=== PATIENT | male | born 1985 ===

== ENCOUNTER 2025-08-30 10:48 | Emergency (ER) | payer BC, MEDICAID, SELFPAY ==
--- NOTE | 2025-08-30 10:57 | ED_ITS ---
HPI - General Adult 2 General: Chief complaint: Headache Stated complaint: extreme mood swings, headache, vomiting , SOB Time Seen by Provider: 08/30/25 10:56 History of Present Illness: 40-year-old male presents emergency room with sudden onset of a migraine headache with blurred vision this morning it began while he was masturbating. Patient is extremely anxious. He has no focal neurologic deficits he still has a headache. He had episode of vomiting. He also states he has had significant mood swings lately. He denies any homicidal or suicidal ideation Associated symptoms: Reports headache(s), nausea and vomiting; Deny chest pain, dyspnea or rash Related Data Previous Rx's ?Medication ?Instructions ?Recorded bupropion HCl 150 mg 24 hr tablet, 150 mg PO QAM #30 t abs 07/31/25 extended release (Wellbutrin XL) trazodone 50 mg tablet 100 mg (2 x 50 mg) PO .HS MI N 07/31/25 insomnia #60 tabs venlafaxine 37.5 mg See Rx Instructions PO .COMP ROCKY 08/17/25 capsule,extended release 24 hr #12 caps (Effexor XR) mirtazapine 15 mg tablet 15 mg PO .qhs #30 tabs 08/28 Allergies Allergy/AdvReac Type Severity Reaction Status Date / Time venlafaxine (From Effexor) Allergy Unknown Verified 09/01/25 15:31 mold AdvReac Intermediate ADR-Itching Verified 09/01/25 15:31 Review of Systems 2 Const: Denies: fever(s) or chills Card: Denies: chest pain Resp: Denies: dyspnea GI: Reports: nausea and vomiting; Denies: abdominal pain : Denies: dysuria, urinary frequency or urinary urgency Musc: Denies: neck pain or back pain Skin/Breast: Denies: rash Neuro: Reports: headache(s) PFSH ED 2 PFSH: Medical History Psychiatric care Physical Exam 2 Const: COMMON NORMALS: no acute distress GENERAL APPEARANCE: cooperative and comfortable ORIENTATION/CONSCIOUSNESS: Yes awake, Yes oriented to person, Yes oriented to place and Yes oriented to time HENMT: COMMON NORMALS: normocephalic, atraumatic and hearing grossly normal bilaterally HEAD & SCALP: normocephalic and atraumatic Resp: COMMON NORMALS: normal respiratory effort, No retractions, No use of accessory muscles and clear to auscultation bilaterally AUSCULTATION: clear to auscultation bilaterally Cardio: COMMON NORMALS: regular rate, regular rhythm and No murmurs present (Cardio) RATE: regular rate RHYTHM: regular rhythm GI: COMMON NORMALS: Soft to palpation and No hepatosplenomegaly present A USCULTATION: Yes normoactive bowel sounds PALPATION: Yes Soft to palpation, No Tenderness to palpation present (GI), No Guarding due to palpation present (GI) and Yes No hepatosplenomegaly present Extremity: COMMON NORMALS: normal to inspection, capillary refill normal, no clubbing, cyanosis or edema, no calf tenderness and no pedal edema Neuro: SENSORIUM/ORIENTATION: Yes oriented to person, Yes oriented to place and Yes oriented to time OTHER: No focal neurologic deficits. No facial asymmetry strength equal bilaterally no ataxia Skin: COMMON NORMALS: no rashes or lesions noted GENERAL SKIN EXAM: no rashes or lesions noted Course 2 Vital Signs: Vital signs: Vital Signs Temperature 97.6 F 08/30/25 10:59 Pulse Rate 65 08/30/25 11:12 Respiratory Rate 18 08/30/25 11:12 Blood Pressure 124/70 08/30/25 13:16 Pulse Oximetry 100 08/30/25 13:16 Oxygen Delivery Me thod Room Air 08/30/25 13:16 MDM - General Adult Medical Decision Making Medical decision making Social determinants: Minimal social support I reviewed the patient's medical record. I reviewed the patient's current home meds Alternate historians: None Differential diagnosis migraine with aura, Subarachnoid hemorrhage, subdural hematoma, CVA Imaging: CT head negative for any acute findings Assessment of risk: Level of risk: Low Hospitalization considerations: Pending results of CT hospitalization would be considered if patient does have significant intracranial findings Reexamination: Repeat exam headache improved. He still has no focal neurologic deficits Assessment and plan: Suspect migraine with aura. Patient improved with medications given. No finding of acute stroke. He does have a significant component of anxiety by his own admission. Reviewed findings with the patient will discharge patient home encouraged him to follow-up with his primary care doctor if migraines recur or persist. Also can discuss treatment options for his anxiety issues Medical Records I reviewed the patient's medical records. Lab Data I reviewed the patient's lab results. 08/30/25 11:08 08/30/25 11:[address] 08/30/25 11:10 IMPRESSION: 1. No evidence of intracranial hemorrhage or mass effect. 2. No acute intracranial findings. Laboratory Results WBC 9.26 10^3/uL (3.29-11.43) 08/30/25 11:08 RBC 4.84 10^6/uL (3.85-5.65) 08/30/25 11:08 Hgb 14.90 g/dL (11.27-16.99) 08/30/25 11:08 Hct 42.6 % (37-53) 08/30/25 11:08 MCV 88.0 fl (82-101) 08/30/25 11:08 MCH 30.8 pg (27-33) 08/30/25 11:08 MCHC 35.0 g/dL (30-55) 08/30/25 11:08 RDW 12.7 % (12.1-15.1) 08/30/25 11:08 Plt Count 243 10^3/cmm (157-399) 08/30/25 11:08 MPV 10.8 fL (7.4-10.4) H 08/30/25 11:08 Neut % (Auto) 63.9 % 08/30/25 11:08 Lymph % (Auto) 27.4 % 08/30/25 11:08 [place] % (Auto) 6.6 % 08/30/25 11:08 Eos % (Auto) 1.4 % 08/30/25 11:08 Baso % (Auto) 0.4 % 08/30/25 11:08 Neut # (Auto) 5.91 10^3/uL (1.8-7.7) 08/30/25 11:08 Lymph # (Auto) 2.5 10^3/uL (0.8-4.8) 08/30/25 11:08 [place] # (Auto) 0.6 10^3/uL (0.2-0.9) 08/30/25 11:08 Eos # (Auto) 0.1 10^3/uL (0.0-0.8) 08/30/25 11:08 Baso # (Auto) 0.0 10^3/uL (0.0-0.1) 08/30/25 11:08 Nucleated RBC % (auto) 0 % 08/30/25 11:08 Nucleated RBCs # 0.0 /100WBC 08/30/25 11:08 Sodium 139 mmol/L (136-145) 08/30/25 11:08 Potassium 3.9 mmol/L (3.5-5.1) 08/30/25 11:08 Chloride 103 mmol/L (98-107) 08/30/25 11:08 Carbon Dioxide 28 mmol/L (22-29) 08/30/25 11:08 Anion Gap 11.9 (5-19) 08/30/25 11:08 BUN 8 mg/dL (6-20) 08/30/25 11:08 Creatinine 0.8 mg/dL (0.7-1.2) 08/30/25 11:08 GFR Calculation 107.1 mL/min (90-130) 08/30/25 11:08 Glucose 101 mg/dL (65-115) 08/30/25 11:08 Calculated Osmolality 286 mOsm/kg (285-295) 08/30/25 11:08 Calcium 9.3 mg/dL (8.5-10.5) 08/30/25 11:08 Total Bilirubin 0.5 mg/dL (0.15-1.2) 08/30/25 11:08 AST 24 U/L (0-40) 08/30/25 11:08 ALT 38 U/L (0-41) 08/30/25 11:08 Alkaline Phosphatase 60 U/L (40-130) 08/30/25 11:08 Total Protein 7.4 g/dL (6.6-8.7) 08/30/25 11:08 Albumin 4.6 g/dL (3.5-5.2) 08/30/25 11:08 Globulin 2.8 g/dL (1.3-4.6) 08/30/25 11:08 Lipase 25 U/L (13-60) 08/30/25 11:08 Urine Color Yellow (Yellow) 08/30/25 11:17 Urine Appearance Clear (CLEAR) 08/30/25 11:17 Urine pH 6.5 (5-7) 08/30/25 11:17 Ur Specific [place] 1.003 (1.005-1.030) L 08/30/25 11:17 Urine Protein Negative (Negative) 08/30/25 11:17 Urine Glucose (UA) Negative (Normal) 08/30/25 11:17 Urine Ketones Negative (Negative) 08/30/25 11:17 Urine Blood Negative (Negative) 08/30/25 11:17 Urine Nitrate Negative (Negative) 08/30/25 11:17 Urine Bilirubin Negative (Negative) 08/30/25 11:17 Urine Urobilinogen 0.2 mg/dL (Negative) 08/30/25 11:17 Ur Leukocyte Esterase Negative (Negative) 08/30/25 11:17 Urine RBC 0-2 /hpf (0-2) 08/30/25 11:17 Urine WBC 0-5 /hpf (0-5) 08/30/25 11:17 Ur Squamous Epith Cells 0-5 /hpf (0-5) 08/30/25 11:17 Amorphous Sediment Not Reportable 08/30/25 11:17 Urine Bacteria None seen /hpf (NONE) 08/30/25 11:17 Hyaline Casts 0.81 /lpf 08/30/25 11:17 All radiology interpretation(s) finalized by discharge Discharge Plan Discharge Patient Disposition: Home Clinical Impression: Migraine Condition: Stable Prescriptions: No Action bupropion HCl [Wellbutrin XL] 150 mg tablet extended release 24 hr 150 mg PO QAM Qty: 30 2RF trazodone 50 mg tablet 100 mg PO .HS PRN (Reason: insomnia) Qty: 60 2RF venlafaxine [Effexor XR] 37.5 mg capsule,extended release 24hr See Rx Instructions PO .COMPLEX Qty: 12 0RF Rx Instructions: Take two capsules PO daily for 4 days. After that, take one capsule PO daily for 4 days. mirtazapine 15 mg tablet 15 mg PO .qhs Qty: 30 1RF Discharge Orders: Discharge ED (Routine); Ordered 08/30/25 Ordered By: Carlos Pacheco Discharge Diet: Usual diet Discharge Activity: Increase activity as tolerated Patient Instructions: Opioid Safety, Pain Management, Patient Portal & Anay Instructions Activity Restrictions/Additional Instructions: Thank you for choosing [facility] for your healthcare needs today. It is very important that you follow up as instructed or that you return to the Emergency Department should you have concerns or if your condition changes or worsens in any way. Emergency department visits are focused on emergent conditions, in some cases you may require further evaluation on an outpatient basis. You are seen in the emergency room with complaints of headache with episode of vomiting. Your neurologic exam was normal CT of your head was negative your labs are otherwise unremarkable. Symptoms are consistent with migraine variant will discharge you home and have you follow-up with neurology. (Please note that included in your discharge packet is information concerning opioid safety and pain management. This information is given to all patients were discharged from the ER regardless of their discharge diagnosis or the medicines they usually take or are prescribed.) Print Language: Danish Coding Level of Care Code ED [employer] for [employer]
[2025-08-30 10:59] VITALS: BP 147/100; PULSE 68; RESP 20; TEMP 36.4; O2SAT 98
[2025-08-30] MEDS: ondansetron 2 mg/ML SDV 2 mL 4 MG IVP (11:09)
--- NOTE | 2025-08-30 11:10 | CT_ITS ---
WS: [id number] CT HEAD TECHNIQUE: Noncontrast CT of the head obtained from the skullbase to the vertex. CLINICAL INFORMATION: Extremity numbness headaches COMPARISON: None. DLP: 1256.[address] scans at [facility] use at least one of these dose optimization techniques: automated exposure control; mA and/or kV adjustment per patient size (includes targeted exams where dose is matched to clinical indication); or iterative reconstruction. FINDINGS: No evidence of intracranial hemorrhage or mass effect. Ventricular system and basal cisterns are patent. No extra-axial fluid collections. No evidence of mass or mass effect. Normal lindsey-white differentiation. Paranasal sinuses and mastoid air cells are well aerated. .Normal visualized soft tissues. CT/CT head wo con* [id number] IMPRESSION: 1. No evidence of intracranial hemorrhage or mass effect. 2. No acute intracranial findings.
[2025-08-30 11:12] VITALS: BP 134/96; PULSE 65; RESP 18; O2SAT 99
[2025-08-30 11:21] LABS: Hematocrit 42.6 % (37-53); Hemoglobin 14.90 g/dL (11.27-16.99); Mean Corpuscular HGB Conc 35.0 g/dL (30-55); Mean Corpuscular Hemoglobin 30.8 pg (27-33); Mean Corpuscular Volume 88.0 fl (82-101); Nucleated Red Blood Cells % 0 %; Platelet Count 243 10^3/cmm (157-399); Red Blood Count 4.84 10^6/uL (3.85-5.65); White Blood Count 9.26 10^3/uL (3.29-11.43)
[2025-08-30 11:28] LABS: Glucose Urine UA Negative (Normal); Nitrate Urine Negative (Negative); Specific Gravity, Urine 1.003 (1.005-1.030)
[2025-08-30 11:33] LABS: Add Urine Microscopic? YES
[2025-08-30 11:45] LABS: Alanine Aminotransferase 38 U/L (0-41); Albumin Level 4.6 g/dL (3.5-5.2); Alkaline Phosphatase 60 U/L (40-130); Anion Gap 11.9 (5-19); Aspartate Amino Transferase 24 U/L (0-40); Blood Urea Nitrogen 8 mg/dL (6-20); Calcium 9.3 mg/dL (8.5-10.5); Carbon Dioxide 28 mmol/L (22-29); Chloride 103 mmol/L (98-107); Globulin 2.8 g/dL (1.3-4.6); Glucose 101 mg/dL (65-115); Lipase 25 U/L (13-60); Osmolality Calculated 286 mOsm/kg (285-295); Potassium 3.9 mmol/L (3.5-5.1); Sodium 139 mmol/L (136-145); Total Protein 7.4 g/dL (6.6-8.7)
[2025-08-30 12:19] VITALS: BP 135/76; O2SAT 98
[2025-08-30 12:44] VITALS: BP 136/81; O2SAT 100
[2025-08-30 13:16] VITALS: BP 124/70; O2SAT 100
--- NOTE | 2025-08-30 13:34 | PC.NURSE ---
This nurse heard yelling in this pts room while this nurse was next door in a different pts room. This nurse went to check on this pt and the pt states he needed to leave now. Pt states I have to go now, my son has to leave school now . Pt refused to stay for IVF. This nurse notified dr jovel and dr jovel verbalized it was okay for him to leave.
--- OUTSIDE RECORDS SUMMARY | 2025-08-30 13:55 | XMS_ITS | Encounter Summary ---
Author Organization [facility], [facility] Address [address] [place] [address] Phone Care Team Providers Care Tinsmith Apprentice Name Role Phone Seble Josue MD Primary Care Provider [phone] Encounter Details Date Type Department Care Team (Late st Contact Info) Description 10/23/2020 Orders Only [facility], [facility] [address] [place] [address] Fabry-Robert disease (HCC) Social History Tobacco Use Types Packs/Day Years Used Date Smoking Tobacco: Never Assessed Sex and Gender Information Value Date Recorded Sex Assigned at Not on file Legal Sex Male 10:18 AM EST Gender Identity Not on file Sexual Orientation Not on file documented as of this encounter Plan of Treatment Not on file documented as of this encounter Visit Diagnoses 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
--- OUTSIDE RECORDS SUMMARY | 2025-08-30 13:55 | XMS_ITS | Clinical Summary ---
Author Organization [facility] Address [address], [address] [place] [address] Phone Care Team Providers Care Separator Tender Name Role Phone Seble Josue MD Primary Care Provider Allergies No known active allergies Medications flu vaccine quadrivalent (6 mo+)(PF)(FUARIX QUAD,FLULAVAL QUAD/FLUZONE QUAD) 60 mcg/0.5 mL IM syringe To be administered by the pharmacist. 0.5 mL 08/07/2019 12:21 PM CDT 9 Active levocetirizine (XYZAL) 5 mg tablet Take 5 mg by mouth late in the day. Active lamoTRIgine (LaMICtal) 100 mg tablet Take 100 mg by mouth 2 times daily. Active propranoloL (INDERAL) 10 mg tablet Take 10 mg by mouth 2 times daily. Active ARIPiprazole (ABILIFY) 10 mg tablet Take 10 mg by mouth daily. Active sertraline (ZOLOFT) 50 mg tablet Take 50 mg by mouth daily. Active aspirin (ECOTRIN EC) 81 mg Tablet, Delayed Release (E.C.) Take 81 mg by mouth daily. Active Active Problems No known active problems Social History Tobacco Use Types Packs/Day Years Used Date Smoking Tobacco: Never Smokeless Tobacco: Former Tobacco Cessation:Counseling Given: No Sex and Gender Information Value Date Recorded Sex Assigned at Not on file Legal Sex Male 12:06 PM CDT Gender Identity Not on file Sexual Orientation Not on file Last Filed Vital Signs Vital Sign Reading Time Taken Comments Blood Pressure 142/82 02/07/2021 3:01 PM CDT Pulse 60 11/12/2020 3:37 PM CORRECTIONS OFFICER Temperature 37 C (98.6 F) 02/07/2021 3:01 PM CDT Respiratory Rate 18 02/07/2021 3:01 PM CDT Oxygen Saturation 99% 10/05/2020 3:12 PM CORRECTIONS OFFICER Inhaled Oxygen Concentration - - Weight 128.8 kg (284 lb) 02/07/2021 3:01 PM CDT Height 180.3 cm (5' 11 ) 02/07/2021 3:01 PM CDT Body Mass Index 39.61 02/07/2021 3:01 PM CDT Plan of Treatment Health Maintenance Due Date Last Done Comments DTAP/TDAP/TD VACCINES (1 - Tdap) 2004 HEPATITIS B VACCINES (1 of 3 - 19+ 3-dose series) 03/12 HPV VACCINES (1 - 3-dose SCDM series) 2012 INFLUENZA VACCINE (#1) 2025 10/21/2020 Insurance RX [employer] Commercial [employer] PPO Care Teams Separator Tender Relationship Specialty Start Date End Date Seble Josue MD PCP - General Family Practice 10/05/20
--- OUTSIDE RECORDS SUMMARY | 2025-08-30 13:55 | XMS_ITS | Clinical Summary ---
Author Organization [facility] Facility Address [address] [place] [id number] Care Team Providers Care Assignment Desk Assistant Name Role Phone Seble Josue MD Primary Care Provider [phone] Allergies No known active allergies Medications ARIPiprazole (ABILIFY) 10 MG tablet Take 15 mg by mouth daily Active aspirin (ST ASHLEY) 81 MG EC tablet Take 81 mg by mouth daily Active lamoTRIgine (LaMICtal) 100 MG tablet Take 100 mg by mouth twice a day Active levocetirizine (XYZAL) 5 MG tablet Take 5 mg by mouth Active propranolol (INDERAL) 10 MG tablet Take 10 mg by mouth twice a day Active sertraline (ZOLOFT) 50 MG tablet Take 50 mg by mouth daily Active ibuprofen (ADVIL,MOTRIN) 200 MG tablet Take 600 mg by mouth every 6 (six) hours if needed for mild pain Active lisinopril (PRINIVIL,ZESTR IL) 2.5 MG tablet Take 2.5 mg by mouth 1 (one) time each day Active fluticasone (FLONASE) 50 MCG/ACT nasal spray Administer 1 spray into each nostril 1 (one) time each day Active Active Problems Problem Noted Date Diagnosed Date 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 Moderate bipolar disorder 12/15/2019 Family History Medical History Relation Comments Dementia Father Hypertension Father Stroke Father Dementia Mother Stroke Mother Relation Status Comments Father Alive Mother Alive Social History Tobacco Use Types Packs/Day Years Used Date Smoking Tobacco: Every Day Smokeless Tobacco: Never Alcohol Use Standard Drinks/Week Comments Yes 3 (1 standard drink = 0.6 oz pur e alcohol) Sex and Gender Information Value Date Recorded Sex Assigned at Not on file Legal Sex Male 10:18 AM EST Gender Identity Not on file Sexual Orientation Not on file Last Filed Vital Signs Vital Sign Reading Time Taken Comments Blood Pressure 120/80 02/19/2021 1:07 PM CDT Pulse 73 02/19/2021 1:07 PM CDT Temperature 36.6 C (97.9 F) 02/19/2021 1:07 PM CDT Respiratory Rate - - Oxygen Saturation - - Inhaled Oxygen Concentration - - Weight 126 kg (278 lb 9.6 oz) 02/19/2021 1:07 PM CDT Height 182.9 cm (6') 02/19/2021 1:07 PM CDT Body Mass Index 37.78 02/19/2021 1:07 PM CDT Plan of Treatment Health Maintenance Due Date Last Done Comments Hepatitis B Vaccine (1 of 3 - 19+ 3-dose series) 04/02 Pneumococcal Vaccine: Peds ( 0 to 5 Years) and At-Risk Patients (6 to 49 Years) (1 of 2 - PCV) 2004 Influenza Vaccine (#1) 2025 10/21/2020 Care Teams Assignment Desk Assistant Relationship Specialty Start Date End Date Seble Josue MD [address] [place] [address] PCP - General 10/23/20
--- OUTSIDE RECORDS SUMMARY | 2025-08-30 13:55 | XMS_ITS | Encounter Summary ---
Author Organization [facility] Address [address] [place] [address] Care Team Providers Care Family And Divorce Legal Assistant Name Role Phone Seble Josue MD Primary Care Provider [phone] Reason for Referral * Radiology Services (Routine) - Closed Specialty Diagnoses / Procedures Referred By Contac t Referred To Contact Radiology Diagnoses Fabry (-casi) disease (CMS/HCC) Procedures ECHO COMPLETE Seble Josue MD Phone: tel: fax: [facility] Echo [address] [place] [address] Phone: tel: fax: Referral ID Status Reason Start Date Expiration Date V isits Requested Visits Authorized [id number] Closed F CTS to Schedule 10/30/2020 11/29/2020 1 1 ATIONS RESEARCH ANALYST Encounter Details Date Type Department Care Team (Late st Contact Info) Description 10/23/2020 Ancillary Orders [facility] Pre-Registration [place] CALL TO MAKE APPOINTMENT ONLY [address] [place] [address] Seble Josue MD [address] [address] Fabry (-casi) disease (CMS/HCC) Social History Tobacco Use Types Packs/Day Years Used Date Smoking Tobacco: Never Assessed Sex and Gender Information Value Date Recorded Sex Assigned at Not on file Legal Sex Male 12:06 PM CDT Gender Identity Not on file Sexual Orientation Not on file COVID-19 Exposure Response Date Recorded In the last month, have you been in contact with someone who was confirmed or suspected to have Coronavirus / COVID-19? No / Unsure 10/24/2020 1:46 PM OPERATIONS RESEARCH ANALYST documented as of this encounter Plan of Treatment Not on file documented as of this encounter Results * ECHO COMPLETE (10/30/2020 3:46 PM OPERATIONS RESEARCH ANALYST) EJECTION FRACTION 55 INTERFACE SYSTEM 10/30/2020 3:14 PM OPERATIONS RESEARCH ANALYST Narrative INTERFACE SYSTEM - 10/30/2020 4:07 PM OPERATIONS RESEARCH ANALYST [facility] Cardiovascular Services Echocardiography Laboratory [address] [place] [address] Transthoracic Echocardiography Patient: Rusty Study JASON Overton ID: COMPLETE-OP Gender: M : 1985 Age: 35 Room: Study 10/30/2020 Pt Outpatient Date: Status: Study 03:14:04 PM CSN #: [id number] Time: Ordering:Seble Josue Interpreting:Peyman Peña MD Child Nurse: Jade Martinez [facility] Indications and History: Fabry Disease. Summary and Conclusion: - Left ventricle: The cavity size was normal. Wall thickness was increased in a pattern of mild LVH. Systolic function was normal. The left ventricular ejection fraction was 55%, by biplane method of disks. The visually estimated ejection fraction was in the range of 55% to 60%. No diagnostic regional wall motion abnormality identified. Left ventricular diastolic function parameters were normal. The global longitudinal strain was -18%. (Normal range is -18 to -25) - Right ventricle: The cavity size was normal. Systolic function was normal. Systolic pressure was within the normal range. - Aortic valve: Not well visualized. Probably trileaflet; mildly thickened leaflets. Mild regurgitation directed eccentrically in the LVOT and towards the mitral anterior leaflet. - Tricuspid valve: Mild regurgitation. - Aortic root: The aortic root was mild to moderately dilated and measured at 4.3 cm in diameter. Procedure information: No prior study was available for comparison. Study status: Routine. Procedure: Transthoracic echocardiography. Image quality was adequate. Scanning was performed from the parasternal, apical, subcostal, and suprasternal notch acoustic windows. There were no complications. Study components: M-mode, 2D, complete spectral Doppler, and color Doppler. Height: 182.9cm. Height: 72in. Weight: 129.2kg. Weight: 284.2lb. BMI: 38.6kg/m\S\2. BSA: 2.61m\S\2. Blood pressure: 136/73 Study date: 10/30/2020. Study time: 03:14 PM. Location: Echo laboratory. Cardiac Anatomy: LEFT VENTRICLE: The cavity size was normal. Wall thickness was increased in a pattern of mild LVH. Systolic function was normal. The left ventricular ejection fraction was 55%, by biplane method of disks. The visually estimated ejection fraction was in the range of 55% to 60%. No diagnostic regional wall motion abnormality identified. The global longitudinal strain was -18%. (Normal range is -18 to -25) Left ventricular diastolic function parameters were normal. RIGHT VENTRICLE: The cavity size was normal. Systolic function was normal. Systolic pressure was within the normal range. LEFT ATRIUM: The atrium was normal in size. RIGHT ATRIUM: The atrium was normal in size. ATRIAL SEPTUM: No obvious PFO or ASD identified by 2D imaging and color Doppler. AORTIC VALVE: Not well visualized. Probably trileaflet; mildly thickened leaflets. Mobility was not restricted. Doppler: There was no stenosis. Mild regurgitation directed eccentrically in the LVOT and towards the mitral anterior leaflet. Peak velocity ratio of LVOT to aortic valve: 0.77. Peak gradient (S): 8mm Hg. MITRAL VALVE: Structurally normal valve. Mobility was not restricted. No echocardiographic evidence for prolapse. Doppler: There was no evidence for stenosis. No significant regurgitation. Valve area by pressure half-time: 3.03cm\S\2. Indexed valve area by pressure half-time: 1.16cm\S\2/m\S\2. Peak gradient (D): 2mm Hg. TRICUSPID VALVE: Structurally normal valve. Mobility was not restricted. Doppler: There was no evidence for stenosis. Mild regurgitation. PULMONIC VALVE: Not well visualized. The valve appears to be grossly normal. Doppler: There was no evidence for stenosis. Trivial regurgitation. PERICARDIUM: There was no pericardial effusion. AORTA: Aortic root: The aortic root was mild to moderately dilated and measured at 4.3 cm in diameter. Aortic arch: The aortic arch was normal in size. SYSTEMIC VEINS: Inferior vena cava: The vessel was normal in size. INTRACARDIAC MASS THROMBUS: No apparent intracavitary masses or thrombi detected. 2D measurements Doppler measurements Left ventricle Left ventricle LVID ED, PLAX 5.2 cm E', lat bebeto, TDI 13 cm/sec LVID ES, PLAX 3.5 cm E/e', lat bebeto, 6 FS, endocardial, 32 % TDI PLAX E', med bebeto, TDI 8 cm/sec Major axis ES, A4C 8.8 cm E/e', med bebeto, 10 Minor axis ED, A4C 8.8 cm TDI Major axis ED, A2C 9.9 cm E', avg, TDI 10.5 cm/sec Major axis ES, A2C 8.8 cm E/e', avg, TDI 7 LVID, ES 3.5 cm LVOT LVPW, ED 1.2 cm Peak shavonne, S 106.98 cm/sec IVS/LVPW ratio, ED 1 Peak gradient, S 5 mm Hg Vol, ED, 1-p A2C 172 ml Aortic valve Vol, ES, 1-p A2C 96 ml Peak shavonne, S 138.67 cm/sec EF, 1-p A2C 56 % Peak gradient, S 8 mm Hg Vol ED, 1-p A4C 153 ml Peak shavonne ratio, 0.77 Vol ES, 1-p A4C 72 ml LVOT/AV EF, 1-p A4C 53 % Mitral valve SV, 1-p A4C 81 ml Peak E shavonne 78.32 cm/sec EDV/bsa, 1-p A4C 59 ml/m\S\2 Peak A shavonne 49.86 cm/sec ESV/bsa, 1-p A4C 28 ml/m\S\2 Deceleration 250 ms SV/bsa, 1-p A4C 31 ml/m\S\2 time Vol ED, 2-p 166 ml Pressure 73 ms Vol ES, 2-p 74 ml half-time EF, 2-p 55 % Peak gradient, D 2 mm Hg SV, 2-p 76 ml Peak E/A ratio 1.57 Vol/bsa, ED, 2-p 63 ml/m\S\2 Area (PHT) 3.03 cm\S\2 Vol/bsa, ES, 2-p 28 ml/m\S\2 Area/bsa (PHT) 1.16 cm\S\2/m\S\2 SV/bsa, 2-p 29.1 ml/m\S\2 Tricuspid valve Ventricular septum Regurg peak shavonne 229.3 cm/sec IVS, ED 1.2 cm Peak RV-RA 21 mm Hg Aorta gradient, S Root diam 3.9 cm Left atrium AP dim 5.0 cm AP dim index 1.9 cm/m\S\2 SI dim, A4C 5.8 cm Area ES, A4C 23 cm\S\2 Vol, S 86 ml Vol/bsa, S 33 ml/m\S\2 Vol, ES, 1-p A4C 71 ml Vol/bsa, ES, 1-p A4C 27 ml/m\S\2 Vol, ES, 1-p A2C 88 ml Vol/bsa, ES, 1-p A2C 34 ml/m\S\2 Vol, ES, A/L 74 ml Vol/bsa, ES, A/L 28 ml/m\S\2 Right atrium SI dim, ES, A4C 5.8 cm Right ventricle RVID ED, PLAX 3.9 cm [facility] Echo Labs are accredited with the Intersocietal Accreditation Commission - Echocardiography. Prepared and Electronically Authenticated Peyman Peña MD Confirmed 10/30/2020 16:06 Procedure Note Peyman Peña MD - 10/30/2020 [facility] Cardiovascular Services Echocardiography Laboratory [address] [place] [address] Transthoracic Echocardiography Patient: Rusty Study ECHO Tian ID: COMPLETE-OP Gender: M : 1985 Age: 35 Room: Study 10/30/2020 Pt Outpatient Date: Status: Study 03:14:04 PM [facility] #: [id number] Time: Ordering:Seble Josue Interpreting:Peyman Peña MD Child Nurse: Jade Martinez [facility] Indications and History: Fabry Disease. Summary and Conclusion: - Left ventricle: The cavity size was normal. Wall thickness was increased in a pattern of mild LVH. Systolic function was normal. The left ventricular ejection fraction was 55%, by biplane method of disks. The visually estimated ejection fraction was in the range of 55% to 60%. No diagnostic regional wall motion abnormality identified. Left ventricular diastolic function parameters were normal. The global longitudinal strain was -18%. (Normal range is -18 to -25) - Right ventricle: The cavity size was normal. Systolic function was normal. Systolic pressure was within the normal range. - Aortic valve: Not well visualized. Probably trileaflet; mildly thickened leaflets. Mild regurgitation directed eccentrically in the LVOT and towards the mitral anterior leaflet. - Tricuspid valve: Mild regurgitation. - Aortic root: The aortic root was mild to moderately dilated and measured at 4.3 cm in diameter. Procedure information: No prior study was available for comparison. Study status: Routine. Procedure: Transthoracic echocardiography. Image quality was adequate. Scanning was performed from the parasternal, apical, subcostal, and suprasternal notch acoustic windows. There were no complications. Study components: M-mode, 2D, complete spectral Doppler, and color Doppler. Height: 182.9cm. Height: 72in. Weight: 129.2kg. Weight: 284.2lb. BMI: 38.6kg/m\S\2. BSA: 2.61m\S\2. Blood pressure: 136/73 Study date: 10/30/2020. Study time: 03:14 PM. Location: Echo laboratory. Cardiac Anatomy: LEFT VENTRICLE: The cavity size was normal. Wall thickness was increased in a pattern of mild LVH. Systolic function was normal. The left ventricular ejection fraction was 55%, by biplane method of disks. The visually estimated ejection fraction was in the range of 55% to 60%. No diagnostic regional wall motion abnormality identified. The global longitudinal strain was -18%. (Normal range is -18 to -25) Left ventricular diastolic function parameters were normal. RIGHT VENTRICLE: The cavity size was normal. Systolic function was normal. Systolic pressure was within the normal range. LEFT ATRIUM: The atrium was normal in size. RIGHT ATRIUM: The atrium was normal in size. ATRIAL SEPTUM: No obvious PFO or ASD identified by 2D imaging and color Doppler. AORTIC VALVE: Not well visualized. Probably trileaflet; mildly thickened leaflets. Mobility was not restricted. Doppler: There was no stenosis. Mild regurgitation directed eccentrically in the LVOT and towards the mitral anterior leaflet. Peak velocity ratio of LVOT to aortic valve: 0.77. Peak gradient (S): 8mm Hg. MITRAL VALVE: Structurally normal valve. Mobility was not restricted. No echocardiographic evidence for prolapse. Doppler: There was no evidence for stenosis. No significant regurgitation. Valve area by pressure half-time: 3.03cm\S\2. Indexed valve area by pressure half-time: 1.16cm\S\2/m\S\2. Peak gradient (D): 2mm Hg. TRICUSPID VALVE: Structurally normal valve. Mobility was not restricted. Doppler: There was no evidence for stenosis. Mild regurgitation. PULMONIC VALVE: Not well visualized. The valve appears to be grossly normal. Doppler: There was no evidence for stenosis. Trivial regurgitation. PERICARDIUM: There was no pericardial effusion. AORTA: Aortic root: The aortic root was mild to moderately dilated and measured at 4.3 cm in diameter. Aortic arch: The aortic arch was normal in size. SYSTEMIC VEINS: Inferior vena cava: The vessel was normal in size. INTRACARDIAC MASS THROMBUS: No apparent intracavitary masses or thrombi detected. 2D measurements Doppler measurements Left ventricle Left ventricle LVID ED, PLAX 5.2 cm E', lat bebeto, TDI 13 cm/sec LVID ES, PLAX 3.5 cm E/e', lat bebeto, 6 FS, endocardial, 32 % TDI PLAX E', med bebeto, TDI 8 cm/sec Major axis ES, A4C 8.8 cm E/e', med bebeto, 10 Minor axis ED, A4C 8.8 cm TDI Major axis ED, A2C 9.9 cm E', avg, TDI 10.5 cm/sec Major axis ES, A2C 8.8 cm E/e', avg, TDI 7 LVID, ES 3.5 cm LVOT LVPW, ED 1.2 cm Peak shavonne, S 106.98 cm/sec IVS/LVPW ratio, ED 1 Peak gradient, S 5 mm Hg Vol, ED, 1-p A2C 172 ml Aortic valve Vol, ES, 1-p A2C 96 ml Peak shavonne, S 138.67 cm/sec EF, 1-p A2C 56 % Peak gradient, S 8 mm Hg Vol ED, 1-p A4C 153 ml Peak shavonne ratio, 0.77 Vol ES, 1-p A4C 72 ml LVOT/AV EF, 1-p A4C 53 % Mitral valve SV, 1-p A4C 81 ml Peak E shavonne 78.32 cm/sec EDV/bsa, 1-p A4C 59 ml/m\S\2 Peak A shavonne 49.86 cm/sec ESV/bsa, 1-p A4C 28 ml/m\S\2 Deceleration 250 ms SV/bsa, 1-p A4C 31 ml/m\S\2 time Vol ED, 2-p 166 ml Pressure 73 ms Vol ES, 2-p 74 ml half-time EF, 2-p 55 % Peak gradient, D 2 mm Hg SV, 2-p 76 ml Peak E/A ratio 1.57 Vol/bsa, ED, 2-p 63 ml/m\S\2 Area (PHT) 3.03 cm\S\2 Vol/bsa, ES, 2-p 28 ml/m\S\2 Area/bsa (PHT) 1.16 cm\S\2/m\S\2 SV/bsa, 2-p 29.1 ml/m\S\2 Tricuspid valve Ventricular septum Regurg peak shavonne 229.3 cm/sec IVS, ED 1.2 cm Peak RV-RA 21 mm Hg Aorta gradient, S Root diam 3.9 cm Left atrium AP dim 5.0 cm AP dim index 1.9 cm/m\S\2 SI dim, A4C 5.8 cm Area ES, A4C 23 cm\S\2 Vol, S 86 ml Vol/bsa, S 33 ml/m\S\2 Vol, ES, 1-p A4C 71 ml Vol/bsa, ES, 1-p A4C 27 ml/m\S\2 Vol, ES, 1-p A2C 88 ml Vol/bsa, ES, 1-p A2C 34 ml/m\S\2 Vol, ES, A/L 74 ml Vol/bsa, ES, A/L 28 ml/m\S\2 Right atrium SI dim, ES, A4C 5.8 cm Right ventricle RVID ED, PLAX 3.9 cm [facility] Echo Labs are accredited with the [place] hospitaletal Accreditation Commission - Echocardiography. 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
--- OUTSIDE RECORDS SUMMARY | 2025-08-30 13:56 | XMS_ITS | Clinical Summary ---
Author Organization [facility] Address [address], [address] [place] [address] Phone Care Team Providers Care Cyber Transport Systems Specialist Name Role Phone Seble Josue MD Primary Care Provider [phone] Allergies Active Allergy Reactions Criticality Noted Date Comments Mold Anaphylaxis High 03/29/2024 Medications paliperidone (INVEGA) 3 mg Extended Release 24 hour tablet Take 3 mg by mouth daily. 11/10/2023 Active escitalopram oxalate (LEXAPRO) 20 mg tablet Take 20 mg by mouth daily. 12/08/2023 Active atomoxetine (STRATTERA) 80 mg capsule Take 80 mg by mouth daily. 11/10/2023 Active acetaminophen (TYLENOL) 500 mg tablet Take 500 mg by mouth every 6 hours as needed. Active Active Problems Problem Noted Date Diagnosed Date Hematochezia 03/31/2023 Immunizations Immunization Administration Dates Next Due (ADACEL/BOOSTRIX)(10 YR UP) TDAP VACCINE, 0.5ML, IM 12/24/2023 Family History Medical History Relation Name Comments Colon Cancer Neg Hx Social History Tobacco Use Types Packs/Day Years Used Date Smoking Tobacco: Former Cigarettes 2 20 0 11/11/2003 - 11/11/2023 Smokeless Tobacco: Never Tobacco Cessation:Counseling Given: Not Answered Alcohol Use Standard Drinks/Week Comments Yes 0 (1 standard drink = 0.6 oz pur e alcohol) rarely Feeling Safe Answer Date Recorded Are you in a relationship wi th someone who hurts you emotionally and/or physically? No 01/05/2024 Sex and Gender Information Value Date Recorded Sex Assigned at Not on file Legal Sex Male 11:14 PM LICENSED DIRECT ENTRY MIDWIFE Gender Identity Not on file Sexual Orientation Not on file Last Filed Vital Signs Vital Sign Reading Time Taken Comments Blood Pressure 116/70 03/29/2024 4:17 PM CDT Pulse 75 01/05/2024 8:41 PM CDT Temperature 36.9 C (98.4 F) 01/05/2024 8:41 PM CDT Respiratory Rate 21 01/05/2024 8:41 PM CDT Oxygen Saturation 97% 01/05/2024 8:41 PM CDT Inhaled Oxygen Concentration - - Weight 109.3 kg (241 lb) 03/29/2024 4:17 PM CDT Height 180.3 cm (5' 11 ) 03/29/2024 4:17 PM CDT Body Mass Index 33.61 03/29/2024 4:17 PM CDT Plan of Treatment Health Maintenance Due Date Last Done Comments HEPATITIS B VACCINES (1 of 3 - 19+ 3-dose series) 2004 HPV VACCINES (1 - 3-dose SCDM series) 2012 INFLUENZA VACCINE (#1) 2025 10/21/2020 COLORECTAL SCREENING 03/31/2033 03/31/2023, 03/31/20 DTAP/TDAP/TD VACCINES (2 - Td or Tdap) 12/23/2033 Procedures Procedure Name Priority Date/Time Associated Diagnosis Comments COLONOSCOPY REPORT 03/31/2023 1: 56 PM CDT from Last 3 Months or Most Recently Relevant to Health Maintenance Results * COLONOSCOPY REPORT (03/31/2023 1:56 PM CDT) Narrative Procedure Note Chino Cabrera MD - 03/31/2023 1:56 PM CDT [facility] GI Patient Name: Ce Ojeda Procedure Date: 03/31/2023 Date of : 1985 Admit Type: Outpatient Age: 37 Attending MD: Chino Cabrera , , Procedure: Colonoscopy Indications: Hematochezia Providers: Chino Cabrera Referring MD: Medicines: Monitored Anesthesia Care Complications: No immediate complications. Procedure: After I obtained informed consent, the scope was passed under direct vision. Throughout the procedure, the patient's blood pressure, pulse, and oxygen saturations were monitored continuously. The Colonoscope was introduced through the anus and advanced to the terminal ileum. The colonoscopy was performed without difficulty. The patient tolerated the procedure well. The quality of the bowel preparation was good. Anatomical landmarks were photographed. Estimated Blood Loss: Estimated blood loss: none. Findings: Internal hemorrhoids were found during retroflexion. The hemorrhoids were small. The exam was otherwise without abnormality. Impression: - Internal hemorrhoids. - The examination was otherwise normal. - No specimens collected. Recommendation: - Repeat colonoscopy in 10 years for screening purposes. Chino Cabrera, 03/31/2023 1:55:58 PM Number of Addenda: 0 Note Initiated On: 03/31/2023 1:35 PM Scope Withdrawal Time 0 hours 6 minutes 13 seconds Scope In: 1:45:08 PM Scope Out: 1:53:33 PM [address] [place], [place] Chino Cabrera MD GI PROCEDURE ORDERABLES Final Result from Last 3 Months or Most Recently Relevant to Health Maintenance Insurance [email or web address] * Guarantor: CE OJEDA Account Type Relation to Patient Date of Phone Billing Address Personal/Family [address] [address] RX [employer] RX Member Subscriber Plan / Payer (Ef fective 2023-Present) Name:Ce Ojeda Relation to Subscriber:Self Name:Ce Ojeda Subscriber ID:Not on file Payer ID:Not on file Type:RX Commercial Address: [address] [address] Advance Directives For more information, please contact: [phone] * Full Code (Latest Code Status on File) Date Activated Date Inactivated Comments 03/31/2023 1:14 PM 03/31/2023 4:43 PM Care Teams Cyber Transport Systems Specialist Relationship Specialty Start Date End Date Seble Josue MD PCP - General 12/26/20
--- NOTE | 2025-09-03 07:47 | DCPLANNER ---
messaged neuro for er f/u
== END 2025-08-30 13:39 | disposition home or self-care (01) ==
PROVIDERS: Emergency Provider Family Medicine
DX: G43.909 Migraine, unspecified, not intractable, without status migrainosus (principal)
CPT/HCPCS: 70450; 80053; 81001; 83690; 85025; 99283; J0780; J1885; J2405; J7030

== ENCOUNTER 2025-09-01 15:18 | Emergency (ER) | payer BC, MEDICAID, SELFPAY ==
--- NOTE | 2025-09-01 15:24 | ECG_ITS ---
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 Measurements Intervals Smoaks Rate: 74 P: 40 MT: 152 QRS: -24 QRSD: 108 T: 52 QT: 369 QTc: 411 Interpretive Statements SINUS RHYTHM LEFT VENTRICULAR HYPERTROPHY AND ST-T CHANGE [VOLTAGE CRITERIA PLUS ST/T ABNORMALITY] PROBABLE LATERAL MYOCARDIAL INFARCTION , OF INDETERMINATE AGE [35 ms Q WAVE IN I/aVL/V5/V6] Compared to ECG 07/13/2018 13:21:55 ST (T wave) deviation now present Myocardial infarct finding now present Sinus bradycardia no longer present Electronically Signed On 09-02-2025 17:27:27 SPICE MIXER by Stephanie Farah M.D. [email or web address]
--- OUTSIDE RECORDS SUMMARY | 2025-09-01 15:25 | XMS_ITS | Clinical Summary ---
Author Organization [facility] Address [address], [address] [place] [address] Phone Care Team Providers Care Complaint Evaluation Officer Name Role Phone Seble Josue MD Primary Care Provider [phone] Allergies Active Allergy Reactions Criticality Noted Date [...] on file Legal Sex Male 11:14 PM ON AIR TALENT Gender Identity Not on file Sexual Orientation [...] Cabrera MD - 03/31/2023 1:56 PM CDT [facility] GI Patient Name: Ce Ojeda Procedure Date: [...] Scope Out: 1:53:33 PM [address] [place], [place] Chino Cabrera MD GI PROCEDURE ORDERABLES Final Result from Last 3 Months or Most Recently Relevant to Health Maintenance Insurance [employer] * Guarantor: CE OJEDA Account Type Relation to Patient Date of Phone Billing Address Personal/Family [address] [place] [address] RX [employer] RX Member Subscriber Plan / Payer (Ef fective 2023-Present) Name:Ce Ojeda Relation to Subscriber:Self Name:Ce Ojeda Subscriber ID:Not on file Payer ID:Not on file Type:RX Commercial Address: [address] [id number] Advance Directives For more information, please contact: [phone] * Full Code (Latest Code Status on File) Date Activated Date Inactivated Comments 03/31/2023 1:14 PM 03/31/2023 4:43 PM Care Teams Complaint Evaluation Officer Relationship Specialty Start Date End Date Seble Josue MD PCP - General 12/26/20
--- OUTSIDE RECORDS SUMMARY | 2025-09-01 15:25 | XMS_ITS | Clinical Summary ---
Author Organization [facility] Address [address], [address] [place] [address] Phone Care Team Providers Care Blast Hole Driller Name Role Phone Seble Josue MD Primary Care Provider [phone] Allergies No known active allergies Medications flu [...] PM CDT Pulse 60 11/12/2020 3:37 PM INDUSTRIAL HYGENIST Temperature 37 C (98.6 F) 02/07/2021 3:01 PM CDT Respiratory Rate 18 02/07/2021 3:01 PM CDT Oxygen Saturation 99% 10/05/2020 3:12 PM INDUSTRIAL HYGENIST Inhaled Oxygen Concentration - - Weight 128.8 [...] INFLUENZA VACCINE (#1) 2025 10/21/2020 Insurance RX [email or web address] PPO Care Teams Blast Hole Driller Relationship Specialty Start Date End Date Seble Josue MD PCP - General Family Practice 10/05/20
--- OUTSIDE RECORDS SUMMARY | 2025-09-01 15:25 | XMS_ITS | Encounter Summary ---
Author Organization [facility] Address [address] [place] [address] Care Team Providers Care Record Tabulating Clerk Name Role Phone Seble Josue MD Primary Care Provider Reason for Referral * Radiology Services (Routine) - Closed Specialty Diagnoses / Procedures Referred By Contac t Referred To Contact Radiology Diagnoses Fabry (-casi) disease (CMS/HCC) Procedures ECHO COMPLETE Seble Josue MD Phone: tel: fax: [facility] Echo [address] [place] [address] Phone: tel: fax: Referral ID Status Reason Start Date Expiration Date V isits Requested Visits Authorized [id number] Closed F CTS to Schedule 10/30/2020 11/29/2020 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 documented as of this encounter Plan of Treatment Not on file documented as of this encounter Results * ECHO COMPLETE (10/30/2020 3:46 PM FLAVORING MACHINE OPERATOR) EJECTION FRACTION 55 INTERFACE SYSTEM 10/30/2020 3:14 PM FLAVORING MACHINE OPERATOR Narrative INTERFACE SYSTEM - 10/30/2020 4:07 PM FLAVORING MACHINE OPERATOR [facility] Cardiovascular Services Echocardiography Laboratory [address] [place] [id number] Transthoracic Echocardiography Patient: Rusty Study JASON Overton ID: COMPLETE-OP Gender: M : 1985 Age: 35 Room: Study 10/30/2020 Pt Outpatient Date: Status: Study 03:14:04 PM CSN #: [id number] Time: Ordering:Seble Josue Interpreting:Peyman Peña MD Enrollment Coordinator: Jade Martinez [facility] Indications and History: Fabry Disease. Summary and [...] Right ventricle RVID ED, PLAX 3.9 cm [facility] Echo Labs are accredited with the Intersocietal Accreditation Commission - Echocardiography. Prepared and Electronically Authenticated Peyman Peña MD Confirmed 10/30/2020 16:06 Procedure Note Peyman Peña MD - 10/30/2020 [facility] Cardiovascular Services Echocardiography Laboratory [address] [place] [id number] Transthoracic Echocardiography Patient: Rusty Study ECHO Tian ID: COMPLETE-OP Gender: M : 1985 Age: 35 Room: Study 10/30/2020 Pt Outpatient Date: Status: Study 03:14:04 PM [facility] #: [id number] Time: Ordering:Seble Josue Interpreting:Peyman Peña MD Enrollment Coordinator: Jade Martinez [facility] Indications and History: Fabry Disease. Summary and [...] Right ventricle RVID ED, PLAX 3.9 cm [facility] are accredited with the [facility] Accreditation Commission - Echocardiography. 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
[2025-09-01 15:27] VITALS: BP 134/91; PULSE 77; RESP 20; TEMP 36.6; O2SAT 100; BMI 39.0
--- NOTE | 2025-09-01 15:37 | ED.C_ITS ---
HPI - Psych General: Chief Complaint: Psychiatric Symptoms Stated Complaint: CP Pain Agitated headeche Time Seen by Provider: 09/01/25 15:35 History of Present Illness: 40-year-old man presents to the emergenc y room with neck pain and headache. He was seen a couple days ago for this. At the time I go to see him is extremely angry. He is yelling at me. I ask if he had told nursing that he was wanting to hurt himself and he screams at me no he curses at me frequently. He says he is trying to say that 1 way or the other we are going to fix his pain. He then becomes even more agitated and walks out. At this point I do not think that he is active doubly suicidal I think he is seeking pain medications or pain management and is angry about it. He denies explicitly suicidal ideation. He says he is here strictly for his pain control and that he wants something done but then he becomes angry and walks out. I asked him several times to please stop yelling and cursing at me and each time he just became more angry Related Data Previous Rx's ?Medication ?Instructions ?Recorded bupropion HCl 150 mg 24 hr tablet, 150 mg PO QAM #30 t abs 07/31/25 extended release (Wellbutrin XL) trazodone 50 mg tablet 100 mg (2 x 50 mg) PO .HS OH N 07/31/25 insomnia #60 tabs venlafaxine 37.5 mg See Rx Instructions PO .COMP ROCKY 08/17/25 capsule,extended release 24 hr #12 caps (Effexor XR) mirtazapine 15 mg tablet 15 mg PO .qhs #30 tabs 08/28 Allergies Allergy/AdvReac Type Severity Reaction Status Date / Time venlafaxine (From Effexor) Allergy Unknown Verified 09/01/25 15:31 mold AdvReac Intermediate ADR-Itching Verified 09/01/25 15:31 Review of Systems General: Reports: Other (Uncooperative patient) [facility] ED PFSH: Medical History (Updated 09/01/25 @ 15:47 by Melia Karimi MD) Psychiatric care Physical Exam Narrative: EXAM NARRATIVE: General: Alert, no acute distress. Skin: warm and dry Head: Normocephalic Neck: Trachea midline Eye: Extraocular movements are intact. Ears, nose, mouth and throat: Oral mucosa moist Respiratory: Respirations are non-labored Musculoskeletal: Normal ROM Gastrointestinal: Abdomen does not appear distended Neurological: Alert and oriented, No focal neurological deficit observed. Psychiatric: Patient is extremely angry. He continues to focus on that he needs pain management and that you is a physician are going to do something or else Course Vital Signs: Vital signs: Vital Signs Temperature 97.8 F 09/01/25 15:27 Pulse Rate 77 09/01/25 15:27 Respiratory Rate 20 H 09/01/25 15:27 Blood Pressure 134/91 09/01/25 15:27 Pulse Oximetry 100 09/01/25 15:27 Oxygen Delivery Me thod Room Air 09/01/25 15:27 MDM - Psych Medical Decision Making Medical decision making Patient's reason for coming to the emergency room: Headache, chest pain Social determinants: Patient is unemployed I reviewed the patient's medical record. Patient has only had 1 previous visit here and that was 2 days ago. I could not review the note at this time. I reviewed the patient's current home meds Patient has several depression type meds listed. Alternate historians: None Medical decision making: Differential diagnosis for this patient presenting with severe headache including but not limited to and based on the above HPI, review of systems and physical exam: Intracranial hemorrhage, stroke, migraine, cluster headache, infections such as influenza, covid Orders placed to evaluate differential diagnosis based on the above differential, HPI and physical exam Differential diagnosis for patient with chest pain includes but is not limited to and based on the above HPI, review of systems and physical exam: Pneumonia. unstable angina. angina. Acute coronary syndrome / [place]. Pulmonary embolism. Costochondritis / musculoskeletal. Pleurisy. Pericarditis. Esophageal spasm. Pancreatitis. Cholecystitis. Orders placed to evaluate differential diagnosis based on the above differential, HPI and physical exam EKG: Time 1524. Rate 74. Normal sinus rhythm, nonspecific ST changes, no ectopy, normal OH & QRS intervals, This was reviewed and interpreted by myself the ER physician at 1530 Patient left AMA. He had denied specifically to me that he was actually suicidal. Saying that the point was we were going to do something for him as he continued to get more more worked up. No radiology studies performed this visit Discharge Plan Discharge Patient Disposition: Left Against Medical Advice Clinical Impression: Headache, Agitation Condition: Stable Prescriptions: No Action bupropion HCl [Wellbutrin XL] 150 mg tablet extended release 24 hr 150 mg PO QAM Qty: 30 2RF trazodone 50 mg tablet 100 mg PO .HS PRN (Reason: insomnia) Qty: 60 2RF venlafaxine [Effexor XR] 37.5 mg capsule,extended release 24hr See Rx Instructions PO .COMPLEX Qty: 12 0RF Rx Instructions: Take two capsules PO daily for 4 days. After that, take one capsule PO daily for 4 days. mirtazapine 15 mg tablet 15 mg PO .qhs Qty: 30 1RF Discharge Diet: Usual diet Print Language: [place] Coding Level of Care Code ED Multiple Punch Press Operator for Evangelina Charles
--- NOTE | 2025-09-01 15:41 | PC.NURSE ---
PT BROUGHT BACK TO [facility] DUE TO STATEMENTS MADE TO TRIAGE NURSE SUGGESTING WANTING TO HARM HIMSELF. DR. MATTHEWS, THIS NURSE, AND SECURITY AT BEDSIDE FOR ASSESSMENT. PT STATES TO DR. MATTHEWS THAT HE IS HAVING A LOT OF PAIN. PT STATES HE NEEDED THE PAIN TO STOP AND WAS WILLING TO DO WHATEVER IT TAKES TO STOP THE PAIN. EVEN . DR. MATTHEWS ASKED PT IF HE WAS ACTIVELY WANTING TO HARM HIMSELF. PT DENIED ACTIVE SUICIDAL THOUGHTS. DR. MATTHEWS NOTIFIED PT THAT THE TRIAGE NURSE HAD DOCUMENTED STATEMENTS ABOUT PT BEING SUICIDAL DUE TO THE PAIN. PT STATED WELL YOUR TRIAGE NURSE DID NOT LISTEN. SHE DOCUMENTED INCORRECTLY. I JUST WANT THE PAIN TO STOP. I AM NOT GOING TO KILL MYSELF. I JUST WANT YOU TO TREAT MY PAIN. AFTER THIS STATEMENT, PT STOOD UP AND SAID HE WAS LEAVING. SECURITY ASKED DR. MATTHEWS IF HE WAS GOING TO PLACE PT ON A [address] MATTHEWS STATED HE WAS NOT PLACING PT ON A HOLD. PT WAS LET OUT THE ED DOORS BY SECURITY. PT REFUSED TO SIGN AMA FORM. WHILE STANDING IN THE LOBBY, PT BEGAN TO YELL AT SECURITY AND STORMED OUT THE DOORS.
--- NOTE | 2025-09-03 11:53 | PC.NURSE ---
In review of chart this nurse contacted [facility] team to make follow up contact with this patient.
== END 2025-09-01 15:52 | disposition left against medical advice (07) ==
PROVIDERS: Emergency Provider Emergency Medicine
DX: Z53.21 Procedure and treatment not carried out due to patient leaving prior to being seen by health care provider (principal); R07.9 Chest pain, unspecified
CPT/HCPCS: 93005